=== PATIENT | female | born 1995 | race Caucasian/White ===

== ENCOUNTER 2017-10-28 20:43 | Emergency (ER) | payer BC ==
[2017-10-28 21:05] VITALS: BP 119/78
--- NOTE | 2017-10-28 22:06 | ED ---
Skin Complaint - HPI Summary HPI Summary: [id number] patient here with right index finger laceration prior to arriving [facility]. She was cleaning injury knife while cooking dinner when she externally cut the dorsum of her distal right index finger. Bleeding controlled with pressure. Area is sore - she has not tried anything for pain relief prior to arrival. Tetanus is up-to-date. Denies numbness tingling or weakness. - History of Current Complaint Chief Complaint: EDLacSutureRecheck Time Seen by Provider: 10/28/17 21:44 Stated Complaint: MIDDLE FINGER RT HAND LAC Hx Obtained From: Patient Hx Last Menstrual Period: 05/22/17 Pain Intensity: 0 - Allergy/Home Medications Allergies/Adverse Reactions: Allergies Allergy/AdvReac Type Severity Reaction Status Date / Time Sulfa (Sulfonamide Allergy Hives Verified 10/28/17 21:06 Antibiotics) PMH/Surg Hx/FS Hx/Imm Hx Previously Healthy: Yes Endocrine/Hematology History: Denies: Hx Anticoagulant Therapy, Hx Blood Disorders, Autoimmune Disease - Immunization History Immunizations Up to Date: Yes Infectious Disease History: No Infectious Disease History: Denies: Hx of Known/Suspected MRSA, Traveled Outside the [place] in Last 30 Days - Family History Known Family History: Positive: None Negative: Renal Disease - Social History Occupation: Student Alcohol Use: Weekly Substance Use Type: Reports: Marijuana Substance Use Comment - Amount & Last Used: few times a month Hx Tobacco Use: No Smoking Status (MU): Never Smoked Tobacco Review of Systems Positive: no symptoms reported Musculoskeletal: Negative Skin: Other - laceration right index finger Neurological: Negative Psychological: Normal All Other Systems Reviewed And Are Negative: Yes Physical Exam Triage Information Reviewed: Yes Vital Signs On Initial Exam: Initial Vitals Temp Pulse Resp BP Pulse Ox 98.0 F 86 16 119/78 99 10/28/17 21:02 10/28/17 21:02 10/28/17 21:02 10/28/17 21:02 10/28/17 21:02 Vital Signs Reviewed: Yes Appearance: Positive: Well-Appearing, No Pain Distress, Well-Nourished Skin: Positive: Warm, Skin Color Reflects Adequate Perfusion, Dry - Linear 1.5 cm laceration over dorsum of distal right index finger - no active bleeding - clean Eyes: Positive: EOMI ENT: Positive: Hearing grossly normal Respiratory/Lung Sounds: Positive: Breath Sounds Present Cardiovascular: Positive: Pulses are Symmetrical in both Upper and Lower Extremities Musculoskeletal: Positive: Normal, Strength/ROM Intact Neurological: Positive: Normal, Sensory/Motor Intact, Alert, Oriented to Person Place, Time, CN Intact II-III Psychiatric: Positive: Normal Procedures - Splinting Location: right index finger Pre-Made Type: metal - finger splint applied to palmar aspect Pre-Proc Neuro Vasc Exam: normal Post-Proc Neuro Vasc Exam: normal - Laceration/Wound Repair 1 Location: upper extremity - right index finger Description: Linear Length, Depth and Shape: 1.5cm x 2 mm Betadine Prep?: No - Hibiclens plus water solution soak Laceration/Wound Explored: clean Closure: Skin Adhesive, SteriStrips Diagnostics - Vital Signs Vital Signs Temp Pulse Resp BP Pulse Ox 10/28/17 21:02 98.0 F 86 16 119/78 99 - Laboratory Lab Statement: Any lab studies that have been ordered have been reviewed, and results considered in the medical decision making process. Course/Dx - Course Course Of Treatment: No signs of tendon injury - Diagnoses Provider Diagnoses: Laceration of right index finger Discharge - Sign-Out/Discharge Documenting (check all that apply): Discharge - Discharge Plan Condition: Stable Disposition: HOME Patient Education Materials: Finger Laceration (ED), Skin Adhesive Care (ED), Steristrips (ED) Referrals: [facility] - Kahlil STEPHENSON [Medical Doctor] - Additional Instructions: Rest, ice, elevate as needed for pain and swelling Keep Steri-Strips clean dry and in place until they fall off on their own naturally in about 5 days He may take ibuprofen with food as needed for pain and swelling *If he developed redness, swelling, purulent drainage, streaking, follow-up at [facility] - Billing Disposition and Condition Condition: STABLE Disposition: HOME
== END 2017-10-28 22:39 | disposition home or self-care (01) ==
LOC: ED 20:43
DX: S61.210A Laceration without foreign body of right index finger without damage to nail, initial encounter (principal); W26.0XXA Contact with knife, initial encounter; Y92.9 Unspecified place or not applicable
CPT/HCPCS: 12001; 99282